=== PATIENT | female | born 1970 | race African-American/Black ===

== ENCOUNTER 2017-12-25 17:55 | Emergency (ER) | payer MEDICARE ==
[2017-12-25 20:19] VITALS: BP 151/98
[2017-12-25] MEDS ORDERED: LORAZEPAM 1 MG TABLET PO ONE (20:54)
--- NOTE | 2017-12-25 21:01 | ER Document Report ---
ED General - General Chief Complaint: Blood Pressure Problem Stated Complaint: BLOOD PRESSURE ISSUE Time Seen by Provider: 12/25/17 20:30 Notes: Patient is a 47-year-old female that comes to the ED for chief complaint of anxiety, difficulty sleeping, elevated blood pressure readings. She states that she is out of town, she is from [place], she is here on work, she states that a month ago she had a stroke which resolved with no long-term deficits, she is on medication for high cholesterol and hypertension including metoprolol 12.5 mg twice a day, she was initially started on 25 mg daily but she became too dizzy with this. She continues to smoke. However she denies headache, focal numbness or weakness, chest pain, or any complaints at this time other than feeling anxious and tired. She is normally on Xanax or Lorazepam, she does not have either at this time. She denies SI or HI. Her friend is with her at bedside. TRAVEL OUTSIDE OF THE [place] IN LAST 30 DAYS: No - Related Data Allergies/Adverse Reactions: No Known Allergies Allergy (Unverified 12/25/17 17:59) Past Medical History - General Information source: Patient - Social History Smoking Status: Current Every Day Smoker Frequency of alcohol use: None Drug Abuse: None Lives with: Family Family History: Reviewed & Not Pertinent Patient has suicidal ideation: No Patient has homicidal ideation: No - Past Medical History Cardiac Medical History: Reports: Hx Hypercholesterolemia, Hx Hypertension Neurological Medical History: Reports: Hx Cerebrovascular Accident - 2018, no roasterman deficit Renal/ Medical History: Denies: Hx Peritoneal Dialysis - Immunizations Immunizations up to date: Yes Hx Diphtheria, Pertussis, Tetanus Vaccination: Yes Review of Systems - Review of Systems Constitutional: No symptoms reported EENT: No symptoms reported Cardiovascular: No symptoms reported Respiratory: No symptoms reported Gastrointestinal: No symptoms reported Genitourinary: No symptoms reported Female Genitourinary: No symptoms reported Musculoskeletal: No symptoms reported Skin: No symptoms reported Hematologic/Lymphatic: No symptoms reported Neurological/Psychological: See HPI Physical Exam - Vital signs Vitals: Temp Pulse Resp BP Pulse Ox 98.2 F 85 18 141/98 H 97 12/25/17 18:21 12/25/17 18:21 12/25/17 18:21 12/25/17 18:21 12/25/17 18:21 - Notes Notes: GENERAL: Alert, interacts well. No acute distress. HEAD: Normocephalic, atraumatic. EYES: Pupils equal, round, and reactive to light. Extraocular movements intact. ENT: Oral mucosa moist, tongue midline. [Nares patent, no nasal septal hematoma , TM's intact.] NECK: Full range of motion. Supple. Trachea midline. LUNGS: Clear to auscultation bilaterally, no wheezes, rales, or rhonchi. No respiratory distress. HEART: Regular rate and rhythm. No murmur ABDOMEN: Soft, non-tender. Non-distended. Bowel sounds present in all 4 quadrants. EXTREMITIES: Moves all 4 extremities spontaneously. No edema, normal radial and dorsalis pedis pulses bilaterally. No cyanosis. BACK: no cervical, thoracic, lumbar midline tenderness. No saddle anesthesia, normal distal neurovascular exam. NEUROLOGICAL: Alert and oriented x3. Normal speech. [cranial nerves II through XII grossly intact]. PSYCH: Normal affect, normal mood. SKIN: Warm, dry, normal turgor. No rashes or lesions noted. Course - Re-evaluation Re-evalutation: Patient is symptom-free on my evaluation. She still reports anxiety and insomnia, she is on benzos for anxiety at home in [place] reportedly. She appears calm to me, she denies SI or HI, she is cooperative and reasonable. She has asymptomatic hypertension. Unremarkable physical examination including normal neurological exam. After long discussion with patient, patient will be going home in a few days, she will follow closely with her provider, she will be provided with a few medications for anxiety/insomnia specifically lorazepam ( which she has been on the past). Discussed return precautions. Patient and family member at bedside state understanding and agreement. - Vital Signs Vital signs: Temp Pulse Resp BP Pulse Ox 98.7 F 85 16 151/98 H 95 12/25/17 20:07 12/25/17 20:07 12/25/17 20:07 12/25/17 20:07 12/25/17 20:07 Discharge - Discharge Clinical Impression: Anxiety Insomnia Qualifiers: Insomnia type: unspecified Qualified Code(s): G47.00 - Insomnia, unspecified Hypertension Qualifiers: Hypertension type: essential hypertension Qualified Code(s): I10 - Essential ( primary) hypertension Condition: Stable Disposition: HOME, SELF-CARE Additional Instructions: You have been provided with a short-term supply of lorazepam, recommendation is to use this to help you sleep and for anxiety, this can be sedating, do not mix with alcohol or sedating medications. Follow-up closely with your provider for additional evaluation and management of your anxiety and insomnia. Your blood pressure will need to be reevaluated by primary care for additional adjustment. Stop smoking. Return if you worsen including passing out, headache , fever, chest pain, vomiting, or any other concerning symptoms. Prescriptions: Lorazepam 1 mg PO Q4HP PRN #12 tablet PRN Reason:
== END 2017-12-25 21:12 | disposition home or self-care (01) ==
LOC: ER 17:55
DX: F41.9 Anxiety disorder, unspecified (principal); G47.00 Insomnia, unspecified; E78.00 Pure hypercholesterolemia, unspecified; I10 Essential (primary) hypertension; F17.200 Nicotine dependence, unspecified, uncomplicated; Z86.73 Personal history of transient ischemic attack (TIA), and cerebral infarction without residual deficits; Z79.899 Other long term (current) drug therapy
CPT/HCPCS: 99283; A9270